=== PATIENT | female | born 1975 | race Asian ===

== ENCOUNTER 2019-03-05 14:09 | Emergency (ER) | payer BC, OTHER ==
[2019-03-05 14:16] VITALS: BP 112/69
--- NOTE | 2019-03-05 14:33 | UC ---
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 She is complaining of left ear ache over the past few days with no recent cold symptoms. She denies recent swimming. - History of Current Complaint Chief Complaint: UCEar Stated Complaint: EAR ACHE Time Seen by Provider: 03/05/19 14:33 Hx Obtained From: Patient, Data Systems Analyst ?: No Onset/Duration: Gradual Onset - Patient's daughter is with her as principal systems architect. Severity Initially: Mild Severity Currently: Mild Pain Intensity: 8 Aggravating Factors: Nothing Alleviating Factors: Nothing - Allergies/Home Medications Allergies/Adverse Reactions: Allergies Allergy/AdvReac Type Severity Reaction Status Date / Time No Known Allergies Allergy Verified 03/05/19 14:16 PMH/Surg Hx/FS Hx/Imm Hx Previously Healthy: Yes - Surgical History Surgical History: None - Family History Known Family History: Positive: Non-Contributory - Social History Alcohol Use: None Substance Use Type: None Smoking Status (MU): Never Smoked Tobacco Review of Systems All Other Systems Reviewed And Are Negative: Yes ENT: Positive: Ear Ache - Left earache. Is Patient Immunocompromised?: No Physical Exam Triage Information Reviewed: Yes Appearance: Well-Appearing, No Pain Distress, Well-Nourished Vital Signs: Initial Vital Signs Temp 97.6 F 03/05/19 14:13 Pulse 67 03/05/19 14:13 Resp 19 03/05/19 14:13 BP 112/69 03/05/19 14:13 Pulse Ox 100 03/05/19 14:13 Vital Signs Reviewed: Yes Eyes: Positive: Conjunctiva Clear ENT: Positive: Hearing grossly normal, Pharynx normal, TM red - Left ear canal is inflamed with minimal swelling, no exudate or drainage, left tympanic membrane is erythematous with moderate landmarks., Uvula midline Neck: Positive: Supple, Nontender, No Lymphadenopathy Respiratory: Positive: Lungs clear, Normal breath sounds, No respiratory distress, No accessory muscle use Cardiovascular: Positive: RRR, No Murmur, Pulses Normal, Brisk Capillary Refill Musculoskeletal Exam: Normal Neurological Exam: Normal Psychological Exam: Normal Skin Exam: Normal Ear Complaint Course/Dx - Course Course Of Treatment: The patient is comfortable here. I'm going to treat her for the otitis media and otitis externa and keep her ears dry as much as possible. - Differential Dx/Diagnosis Provider Diagnosis: Left otitis media, Left otitis externa Discharge - Sign-Out/Discharge Documenting (check all that apply): Patient Departure All imaging exams completed and their final reports reviewed: No Studies - Discharge Plan Condition: Fair Disposition: HOME Prescriptions: Amoxicillin PO (*) [Amoxicillin 875 MG (*)] 875 mg PO BID 10 Days #20 tab Neomyc/Polym/HC 1% OTIC SUSP* [Cortisporin Otic Susp 1%*] 4 drop LEFT EAR QID # 1 btl Patient Education Materials: Ear Infection (ED), Otitis Externa (DC) Referrals: Marisol Khan MD [Primary Care Provider] - Additional Instructions: Keep ear ears dry for the next week. Follow-up with your primary care provider if no improvement in 4 or 5 days. - Billing Disposition and Condition Condition: FAIR Disposition: Home
== END 2019-03-05 14:46 | disposition home or self-care (01) ==
LOC: UCEAST 14:09
DX: H66.92 Otitis media, unspecified, left ear (principal); H60.92 Unspecified otitis externa, left ear
CPT/HCPCS: 99212; G0463